=== PATIENT | male | born 1970 | race Caucasian/White ===

== ENCOUNTER 2019-03-22 06:13 | Emergency (ER) | payer OTHER ==
[~2019-03-22] VITALS: Ht 175.3 cm; Wt 104.5 kg
[2019-03-22 06:15] VITALS: BP 140/96
[2019-03-22] MEDS ORDERED: predniSONE 20 mg tablet PO ONE (06:35)
[2019-03-22] MEDS ORDERED: acetaminophen 325mg tablet PO ONE (06:35)
[2019-03-22] MEDS ORDERED: ketorolac trometh inj. 60 MG/2 ML VIAL IM ONE (06:35)
[2019-03-22] MEDS ORDERED: CYCL-1 PO (06:36)
[2019-03-22] MEDS ORDERED: MELO-100 PO (06:36)
[2019-03-22] MEDS ORDERED: PRED20TA PO (06:36)
--- NOTE | 2019-03-22 06:52 | NUR ---
PATIENT REFUSES MEDICATIONS THAT WERE ORDERED PER ER MD. DC PAPERWORK GIVEN AND PATIENT REFUSED TO TAKE PRESCRIPTIONS, STATING "I AM TIRED OF EVERYONE GIVING ME MEDICATIONS. I DO NOT WANT THOSE PRESCRIPTIONS." PATIENT SIGNED DC PAPERWORK AND LEFT WITHOUT INSTRUCTIONS/PRESCRIPTIONS.
== END 2019-03-22 07:02 | disposition home or self-care (01) ==
LOC: ER 06:14
DX: M54.12 Radiculopathy, cervical region (principal); G89.29 Other chronic pain; Z98.890 Other specified postprocedural states; Z79.899 Other long term (current) drug therapy
CPT/HCPCS: 99283; J1885; J7512